=== PATIENT | male | born 1995 | race Caucasian/White ===

== ENCOUNTER 2019-03-18 04:56 | Emergency (ER) | payer OTHER ==
[~2019-03-18] VITALS: Ht 177.8 cm; Wt 70.5 kg
[2019-03-18] MEDS ORDERED: LIDOCAINE 1% SDV INJ 30 ML VIAL SC SCH (05:45)
[2019-03-18] MEDS ORDERED: LIDOCAINE 1% MDV 20ML VIAL As Ordered ONE (06:11)
[2019-03-18] MEDS ORDERED: LIDOCAINE 1% MDV 20ML VIAL SC ONE (06:15)
[2019-03-18 07:22] VITALS: BP 130/80
[2019-03-18] MEDS ORDERED: AUGM875T28 PO (07:51)
[2019-03-18] MEDS ORDERED: TETANUS/DIPHTHERIA TOX ADSORB ADULT 0.5ML SYR/VIAL (90714) IM ONE (08:00)
--- NOTE | 2019-03-18 08:29 | REP ---
Left elbow: Two views. History: A laceration. Rule out underlying foreign body or fracture. Findings: There is a dressing artifact over the posterior aspect of the distal humerus on the lateral and frontal radiograph. No fractures seen. No soft tissue gas is observed. No opaque foreign body is noted. Electronically Signed by Henry Robertson MD 03/18/2019 08:20 A
--- NOTE | 2019-03-18 08:30 | REP ---
Left finger series: Four views. History: Laceration. Rule out foreign body or fracture. Findings: Four views of the left fingers show no evidence of fracture or opaque foreign body. No soft tissue gas is appreciated. Impression: Negative radiographs of the left fingers. Electronically Signed by Henry Robertson MD 03/18/2019 08:21 A
== END 2019-03-18 08:45 | disposition home or self-care (01) ==
LOC: M ED 04:56
DX: S61.452A Open bite of left hand, initial encounter (principal); S61.432A Puncture wound without foreign body of left hand, initial encounter; S51.052A Open bite, left elbow, initial encounter; W54.0XXA Bitten by dog, initial encounter; Y92.098 Other place in other non-institutional residence as the place of occurrence of the external cause

== ENCOUNTER → 2019-09-24 | Outpatient (CLI) | payer OTHER ==
[~2019-09-24] MED LIST: AUGM875T28 PO
--- NOTE | 2019-09-24 17:55 | REP ---
PA and lateral chest: There are no comparisons. The lung albarran are clear. The cardiac size is normal. The mohinder, mediastinum, and skeletal structures are unremarkable except for mild scoliosis convex right at the thoracolumbar junction. Impression: Negative PA and lateral chest. Electronically Signed by Luke To MD 09/24/2019 05:46 P
== END ==
LOC: M LRY 16:49
PROVIDERS: ATTEND Physician Assistant
DX: R05 Cough (principal)